=== PATIENT | female | born 1945 | race Caucasian/White ===

== ENCOUNTER 2016-08-20 14:01 | Emergency (ER) | payer MEDICARE, OTHER, BC ==
[2016-08-20 13:30] LABS: POC - CKMB 1.6 ng/mL (0.0-7.9); POC - TROPONIN <0.05 ng/mL (<=0.05)
[2016-08-20 13:41] LABS: BASOPHIL% 0.5 % (0-2.5); EOSINOPHIL% 0.3 % (0.0-7.0); HEMATOCRIT 35.7 % (35.0-45.0); HEMOGLOBIN 11.9 gm/dL (12.0-16.0); LYMPHOCYTE% 13.7 % (17.0-45.0); MEAN CELL VOLUME 82.2 FL (83-96); MEAN CORPUSCULAR HEMOGLOBIN 27.3 PG (28-34); MEAN CORPUSCULAR HGB CONC 33.2 g/dL (30-36); MONOCYTE# 0.4 X10e3 (0-1.0); MONOCYTE% 5.5 % (3.0-12.0); NEUTROPHIL# 5.9 X10e3 (1.5-7.1); PLATELET COUNT 220 X10e3 (140-420); RED BLOOD COUNT 4.34 X10e (3.90-5.30); RED CELL DISTRIBUTION WIDTH 13.4 % (11.0-15.5); WHITE BLOOD COUNT 7.4 X10e3 (4.0-10.5)
[2016-08-20 13:45] LABS: DIFF IND NO
[2016-08-20 13:47] LABS: URINE SOURCE CLEAN CATCH
[2016-08-20 14:00] LABS: URINE APPEARANCE CLEAR; URINE BILIRUBIN NEG (NEG); URINE BLOOD NEG (NEG); URINE COLOR YELLOW; URINE GLUCOSE NEG (NEG); URINE KETONE NEG (NEG); URINE LEUKOCYTE ESTERASE NEG (NEG); URINE NITRATE NEG (NEG); URINE PROTEIN NEG (NEG); URINE SPECIFIC GRAVITY 1.008 (1.003-1.035); URINE UROBILINOGEN 0.2 MG/DL (NEG)
[~2016-08-20 14:01] MED LIST: ACETAMINOPHEN PO; ALPRAZOLAM0.5 MG PO; BENADRYL ALLERG25 MG PO; BENZONATATE PO; BISACODYL EC5 MG PO; BLOOD PRESSURE MED; BYSTOLIC10 MG; BYSTOLIC10 MG PO; BYSTOLIC5 MG PO; CALTRATE 600 W-1 TAB PO; CENTRUM PO; DARVOCET-N 1001 TAB PO; DIOVAN; DIOVAN PO; DIOVAN160 MG PO; DIOVAN320 MG PO; DOCUSATE SODIU100 MG PO; DOMPERIDONE 10 MG; DOXYCYCLINE PO; FOLBIC; FUROSEMIDE40 MG PO; GAMMA GLOBULIN; HYDROCODONE-A1 UDTA2 PO; LEXAPRO PO; LIPITOR PO; NORCO 10-325 TA1 TAB PO; NORVASC; NUVIGIL250 MG PO; PRISTIQ50 MG PO; REQUIP1 MG PO; REQUIP2 MG PO; RISPERDAL0.25 MG PO; TOPAMAX50 MG PO; TRIMPEX100 MG; ULTRAM; ULTRAM PO; VIIBRYD40 MG PO; VITAMIN D31000 UNI1 PO; WELLBUTRIN; XANAX0.5 M1 PO; ZOFRAN8 MG PO; [UNRECOGNIZED DRUG - OTHER] PO
[2016-08-20 14:07] LABS: ALBUMIN SERUM 4.5 g/dL (3.5-5.0); ALKALINE PHOSPHATASE 55 U/L (32-92); ALT (SGPT) 13 U/L (10-40); AST (SGOT) 26 U/L (10-42); BILIRUBIN, DIRECT <0.1 mg/dL (0.0-0.2); BILIRUBIN,INDIRECT 0.5 mg/dL (0.0-0.9); BILIRUBIN,TOTAL 0.6 mg/dL (0.2-2.0); BLOOD UREA NITROGEN 12 mg/dL (9-23); CALCIUM SERUM 9.6 mg/dL (8.4-10.2); CARBON DIOXIDE 24 mmol/L (22-31); CHLORIDE 99 mmol/L (100-111); CREATININE SERUM 0.8 mg/dL (0.6-1.4); GLOM FILT RATE Estimated 73.7 mL/min (>60); GLUCOSE FASTING 99 mg/dL (70-110); LIPASE 26 U/L (22-51); POTASSIUM 4.1 mmol/L (3.5-5.1); PROTEIN TOTAL SERUM 7.4 g/dL (6.0-8.3); SODIUM 132 mmol/L (135-145)
[2016-08-20 14:12] LABS: CULTURE INDICATED? NO
[2016-08-20 15:01] LABS: POC - TROPONIN <0.05 ng/mL (<=0.05)
== END 2016-08-20 14:54 | disposition home or self-care (01) ==
LOC: CED 14:01
PROVIDERS: Emergency Medicine
DX: I10 Essential (primary) hypertension (principal); E78.00 Pure hypercholesterolemia, unspecified; E11.9 Type 2 diabetes mellitus without complications; F43.10 Post-traumatic stress disorder, unspecified; F41.9 Anxiety disorder, unspecified; F32.9 Major depressive disorder, single episode, unspecified; Z79.899 Other long term (current) drug therapy; Z96.659 Presence of unspecified artificial knee joint
CPT/HCPCS: 36415; 80048; 80076; 81003; 82553; 83690; 84484; 85025; 96361; 96374; 96375; 99284; J2405

== ENCOUNTER 2016-08-21 09:10 | Emergency (ER) | payer MEDICARE, OTHER, BC | END 2016-08-21 10:20 | disposition home or self-care (01) | LOC: CED 09:10 | DX: R11.0 Nausea (principal); I10 Essential (primary) hypertension; F32.9 Major depressive disorder, single episode, unspecified; Z98.890 Other specified postprocedural states; F41.9 Anxiety disorder, unspecified; Z87.891 Personal history of nicotine dependence; Z79.899 Other long term (current) drug therapy | CPT/HCPCS: 36415; 96374; 96376; 99284; J2405 ==

== ENCOUNTER 2016-08-29 10:50 | Emergency (ER) | payer MEDICARE, OTHER, BC ==
--- NOTE | ~2016-08-29 | EKG ---
PATIENT: CIARA MCKINNEY UNIT #: [id number] Ventricular Rate: 61 BPM Atrial Rate: 61 BPM P-R Interval: 160 ms QRS Duration: 86 ms Q-T Interval: 398 ms QTC Calculation(Bezet): 400 ms P Woodridge: 73 degrees Calculated R Woodridge: 51 degrees Calculated T Woodridge: 68 degrees Diagnosis Line: Normal sinus rhythm Diagnosis Line: Normal ECG Diagnosis Line: When compared with ECG of 28-MAY-2016 07:39, Diagnosis Line: No significant change was found Diagnosis Line: Confirmed by GRAY CALDWELL MD ([id number]) on 08/29/2016 Diagnosis Line: 4:13:04 PM INTERPRETING MD: JAVI DUNBAR
--- NOTE | ~2016-08-29 | CR2 ---
[facility] A Service of [facility] RADIOLOGY TEXT RESULTS PATIENT: CIARA MCKINNEY LOCATION: NAT : 44 UNIT #: [id number] AGE: [address]: Mari Call MD SEX: F ORDER DR: [id number] [facility] [address] [place], [place] [address] [id number] MR#: [id number] Acc #: [id number] NAME: CIARA MCKINNEY : 1945 SEX: F STUDY DATE/TIME: 08/29/2016 10:49 UNIT: NAT ROOM: STUDY DESCRIPTION: CR Abdomen Acute Series Attending Physician: Mari Call M.D. Ordering Physician: Mari Call M.D. Primary Care Physician: Elver Pickard M.D. MEDICAL IMAGING REPORT This report is preliminary unless electronic signature is present EXAM Acute abdomen series 08/29/2016 HISTORY 71-year-old female with abdominal pain and nausea for [address] abdomen and pelvis 04/18/2013. Chest x-ray 07/22/2014. FINDINGS Frontal chest and 2 flat and upright views of the abdomen were performed. 3 total images. Lungs and pleural spaces are clear. No pneumothorax. Heart size and mediastinum within normal limits. Pulmonary vasculature unremarkable. Bilateral shoulder arthroplasties. Bowel gas pattern nonobstructive. No free intraperitoneal air. No pathologic calcifications projecting over the renal shadows or expected course of either ureter. No acute bony abnormality. IMPRESSION No acute chest or abdominal findings. Dictated by... Chris Rivas M.D. THIS IS AN ELECTRONICALLY VERIFIED REPORT Chris Rivas M.D. at 08/29/2016 2:15 PM [facility] A Service of [facility] RADIOLOGY TEXT RESULTS PATIENT: CIARA MCKINNEY LOCATION: NAT : 44 UNIT #: [id number] AGE: [address]: Mari Call MD SEX: F ORDER DR: TD: 08/29/2016 12:59 JOB #: [id number] MEDICAL IMAGING REPORT Page 1 of 1 COPY
[2016-08-29 10:32] LABS: BASOPHIL% 0.4 % (0-2.5); EOSINOPHIL# 0.1 X10e3 (0-0.7); EOSINOPHIL% 0.6 % (0.0-7.0); HEMATOCRIT 36.4 % (35.0-45.0); HEMOGLOBIN 11.9 gm/dL (12.0-16.0); LYMPHOCYTE% 11.5 % (17.0-45.0); MEAN CELL VOLUME 83.2 FL (83-96); MEAN CORPUSCULAR HEMOGLOBIN 27.3 PG (28-34); MEAN CORPUSCULAR HGB CONC 32.8 g/dL (30-36); MEAN PLATELET VOLUME 7.5 FL (6.5-11.5); MONOCYTE# 0.5 X10e3 (0-1.0); MONOCYTE% 5.1 % (3.0-12.0); NEUTROPHIL# 7.5 X10e3 (1.5-7.1); NEUTROPHIL% 82.4 % (40-75); PLATELET COUNT 244 X10e3 (140-420); RED BLOOD COUNT 4.38 X10e (3.90-5.30); RED CELL DISTRIBUTION WIDTH 13.5 % (11.0-15.5)
[2016-08-29 10:35] LABS: DIFF IND NO
[2016-08-29 11:01] LABS: ALBUMIN SERUM 4.5 g/dL (3.5-5.0); BILIRUBIN, DIRECT 0.2 mg/dL (0.0-0.2); BILIRUBIN,INDIRECT 0.5 mg/dL (0.0-0.9); BILIRUBIN,TOTAL 0.7 mg/dL (0.2-2.0); CALCIUM SERUM 9.4 mg/dL (8.4-10.2); CREATININE SERUM 1.1 mg/dL (0.6-1.4); GLOM FILT RATE Estimated 50.1 mL/min (>60); POTASSIUM 3.8 mmol/L (3.5-5.1); PROTEIN TOTAL SERUM 7.5 g/dL (6.0-8.3)
[2016-08-29 11:49] LABS: URINE SOURCE CLEAN CATCH
[2016-08-29 11:53] LABS: POC - CKMB 1.3 ng/mL (0.0-7.9); POC - TROPONIN <0.05 ng/mL (<=0.05)
[2016-08-29 11:55] LABS: URINE APPEARANCE CLEAR; URINE BILIRUBIN NEG (NEG); URINE BLOOD NEG (NEG); URINE COLOR YELLOW; URINE GLUCOSE NEG (NEG); URINE KETONE NEG (NEG); URINE LEUKOCYTE ESTERASE NEG (NEG); URINE NITRATE NEG (NEG); URINE PROTEIN NEG (NEG); URINE SPECIFIC GRAVITY 1.009 (1.003-1.035); URINE UROBILINOGEN 0.2 MG/DL (NEG)
[2016-08-29 11:58] LABS: CULTURE INDICATED? NO
[2016-08-31 14:45] LABS: POC - CKMB 1.4 ng/mL (0.0-7.9); POC - TROPONIN <0.05 ng/mL (<=0.05)
== END 2016-08-29 12:25 | disposition home or self-care (01) ==
LOC: CED 10:50
PROVIDERS: Student in an Organized Health Care Education/Training Program
DX: R11.0 Nausea (principal); F41.9 Anxiety disorder, unspecified; F32.9 Major depressive disorder, single episode, unspecified; F43.10 Post-traumatic stress disorder, unspecified; I10 Essential (primary) hypertension; Z79.899 Other long term (current) drug therapy
CPT/HCPCS: 36415; 74022; 80048; 80076; 81003; 82150; 82553; 83690; 84484; 85025; 93005; 96374; 96375; 99284; C9113; J2405

== ENCOUNTER 2016-09-08 10:18 | Emergency (ER) | payer MEDICARE, OTHER, BC ==
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
[2016-09-08 12:09] LABS: URINE SOURCE CLEAN CATCH
[2016-09-08 12:17] LABS: URINE APPEARANCE CLEAR; URINE BILIRUBIN NEG (NEG); URINE BLOOD NEG (NEG); URINE COLOR YELLOW; URINE GLUCOSE NEG (NEG); URINE KETONE NEG (NEG); URINE LEUKOCYTE ESTERASE NEG (NEG); URINE NITRATE NEG (NEG); URINE PH 5.5 (5-8); URINE PROTEIN NEG (NEG); URINE SPECIFIC GRAVITY 1.008 (1.003-1.035); URINE UROBILINOGEN 0.2 MG/DL (NEG)
[2016-09-08 12:29] LABS: CULTURE INDICATED? NO
[2016-09-08 12:55] LABS: AMPHETAMINE NEG (NEG); BARBITURATES NEG (NEG); BENZODIAZEPINES POS (NEG); COCAINE NEG (NEG); MARIJUANA NEG (NEG); OPIATES NEG (NEG); TRICYCLIC ANTIDEPRESSANTS NEG (NEG); U METHADONE NEG (NEG)
== END 2016-09-08 12:40 | disposition home or self-care (01) ==
LOC: CED 10:18
PROVIDERS: Emergency Medicine
DX: R11.0 Nausea (principal); F22 Delusional disorders; E78.5 Hyperlipidemia, unspecified; I10 Essential (primary) hypertension; F32.9 Major depressive disorder, single episode, unspecified; F41.9 Anxiety disorder, unspecified; F43.10 Post-traumatic stress disorder, unspecified; E87.1 Hypo-osmolality and hyponatremia; Z98.890 Other specified postprocedural states
CPT/HCPCS: 80307; 81003; 99283; J2405

== ENCOUNTER 2016-09-17 11:25 | Emergency (ER) | payer MEDICARE, OTHER, BC | END 2016-09-17 13:34 | disposition home or self-care (01) | LOC: CED 11:25 | DX: R11.0 Nausea (principal); F41.9 Anxiety disorder, unspecified; I10 Essential (primary) hypertension; F32.9 Major depressive disorder, single episode, unspecified; F43.10 Post-traumatic stress disorder, unspecified | CPT/HCPCS: 99283 ==

== ENCOUNTER 2016-10-23 07:58 | Emergency (ER) | payer MEDICARE, BC, OTHER ==
[2016-10-23] MEDS ORDERED: HYZENTRA (08:01)
== END 2016-10-23 08:41 | disposition home or self-care (01) ==
LOC: SED 07:58
DX: Z76.0 Encounter for issue of repeat prescription (principal); R11.0 Nausea; F41.9 Anxiety disorder, unspecified; I10 Essential (primary) hypertension
CPT/HCPCS: 99281

== ENCOUNTER 2016-10-26 16:47 | Emergency (ER) | payer MEDICARE, BC, OTHER ==
[~2016-10-26 16:47] MED LIST changes: +HYZENTRA
== END 2016-10-26 17:24 | disposition home or self-care (01) ==
LOC: SED 16:47
DX: F41.9 Anxiety disorder, unspecified (principal); R11.0 Nausea; F43.10 Post-traumatic stress disorder, unspecified; Z79.899 Other long term (current) drug therapy
CPT/HCPCS: 99283

== ENCOUNTER 2016-11-05 08:06 | Emergency (ER) | payer MEDICARE, BC, OTHER ==
[2016-11-05 08:48] LABS: BASOPHIL# 0.1 X10e3 (0-0.3); BASOPHIL% 0.5 % (0-2.5); DIFF IND NO; EOSINOPHIL# 0.2 X10e3 (0-0.7); EOSINOPHIL% 1.4 % (0.0-7.0); HEMATOCRIT 35.3 % (35.0-45.0); HEMOGLOBIN 11.8 gm/dL (12.0-16.0); LYMPHOCYTE% 9.6 % (17.0-45.0); MEAN CELL VOLUME 82.6 FL (83-96); MEAN CORPUSCULAR HEMOGLOBIN 27.7 PG (28-34); MEAN CORPUSCULAR HGB CONC 33.5 g/dL (30-36); MONOCYTE# 0.8 X10e3 (0-1.0); MONOCYTE% 7.3 % (3.0-12.0); NEUTROPHIL# 8.9 X10e3 (1.5-7.1); NEUTROPHIL% 81.2 % (40-75); PLATELET COUNT 265 X10e3 (140-420); RED BLOOD COUNT 4.27 X10e (3.90-5.30); RED CELL DISTRIBUTION WIDTH 13.7 % (11.0-15.5); WHITE BLOOD COUNT 10.9 X10e3 (4.0-10.5)
[2016-11-05 09:12] LABS: ALBUMIN SERUM 4.3 g/dL (3.5-5.0); ALKALINE PHOSPHATASE 51 U/L (32-92); ALT (SGPT) 14 U/L (10-40); AST (SGOT) 22 U/L (10-42); BILIRUBIN,TOTAL 0.5 mg/dL (0.2-2.0); BLOOD UREA NITROGEN 17 mg/dL (9-23); CALCIUM SERUM 9.3 mg/dL (8.4-10.2); CARBON DIOXIDE 25 mmol/L (22-31); CHLORIDE 98 mmol/L (100-111); GLOM FILT RATE Estimated 56.3 mL/min (>60); GLUCOSE FASTING 109 mg/dL (70-110); LIPASE 28 U/L (22-51); POTASSIUM 4.2 mmol/L (3.5-5.1); SODIUM 132 mmol/L (135-145)
[2016-11-05 09:13] LABS: BILIRUBIN, DIRECT <0.1 mg/dL (0.0-0.2); BILIRUBIN,INDIRECT 0.4 mg/dL (0.0-0.9)
[2016-11-05 10:34] LABS: URINE SOURCE CLEAN CATCH
[2016-11-05 10:41] LABS: URINE APPEARANCE CLEAR; URINE BILIRUBIN NEG (NEG); URINE BLOOD NEG (NEG); URINE COLOR YELLOW; URINE GLUCOSE NEG (NEG); URINE KETONE NEG (NEG); URINE LEUKOCYTE ESTERASE NEG (NEG); URINE NITRATE NEG (NEG); URINE PROTEIN NEG (NEG); URINE SPECIFIC GRAVITY 1.014 (1.003-1.035); URINE UROBILINOGEN 0.2 MG/DL (NEG)
[2016-11-05 10:51] LABS: CULTURE INDICATED? NO
== END 2016-11-05 12:13 | disposition home or self-care (01) ==
LOC: CED 08:06
PROVIDERS: Physician Assistant
DX: R11.0 Nausea (principal); I10 Essential (primary) hypertension; F41.9 Anxiety disorder, unspecified; F43.10 Post-traumatic stress disorder, unspecified; Z98.890 Other specified postprocedural states; Z79.899 Other long term (current) drug therapy
CPT/HCPCS: 36415; 80048; 80076; 81003; 83690; 85025; 96361; 96374; 99284; J2405

== ENCOUNTER 2016-11-23 07:35 | Emergency (ER) | payer MEDICARE, BC, OTHER | END 2016-11-23 07:59 | disposition home or self-care (01) | LOC: SED 07:35 | DX: F41.9 Anxiety disorder, unspecified (principal); I10 Essential (primary) hypertension; Z79.899 Other long term (current) drug therapy | CPT/HCPCS: 99283 ==

== ENCOUNTER 2016-11-24 06:04 | Emergency (ER) | payer MEDICARE, BC, OTHER | END 2016-11-24 07:23 | disposition home or self-care (01) | LOC: CED 06:04 | DX: F41.9 Anxiety disorder, unspecified (principal) | CPT/HCPCS: 99283 ==